=== PATIENT | female | born 1960 | race Caucasian/White ===

== ENCOUNTER 2016-11-18 11:14 | Inpatient (IN) ==
--- NOTE | 2016-11-17 21:35 | Discharge Summary ---
<Savita Workman - Last Filed: 11/17/16 21:32> Date of Encounter: 11/17/16 - Discharge Diagnosis (1) Arthritis of knee, left Priority: Primary Status: Acute (2) HTN (hypertension) Priority: Secondary Status: Chronic Qualifiers: Hypertension type: essential hypertension Qualified Code(s): I10 - Essential (primary) hypertension (3) FRANKY (obstructive sleep apnea) Priority: Secondary Status: Chronic (4) Obesity Priority: Secondary Status: Chronic Qualifiers: Obesity type: unspecified obesity type Obesity severity: morbid Qualified Code(s): E66.01 - Morbid (severe) obesity due to excess calories (5) DMII (diabetes mellitus, type 2) Priority: Secondary Status: Chronic Qualifiers: Diabetes mellitus complication status: with unspecified complications Diabetes mellitus petroleum terminal plant operator insulin use: unspecified detention insulin use status Qualified Code(s): E11.8 - Type 2 diabetes mellitus with unspecified complications (6) Chronic pain Priority: Secondary Status: Chronic Qualifiers: Chronic pain type: other chronic pain Qualified Code(s): G89.29 - Other chronic pain - Discharge Medications Home Medications: Atenolol [Tenormin] 50 mg PO DAILY 07/19/16 [History] Cholecalciferol (D-3) [Vitamin D] 2,000 unit PO DAILY 07/19/16 [History] Citalopram Hydrobromide [Celexa] 40 mg PO DAILY 07/19/16 [History] Etodolac [Lodine] 400 mg PO BID 07/19/16 [History] Gabapentin [Neurontin] 600 mg PO TID 07/19/16 [History] Simvastatin [Zocor] 20 mg PO HS 07/19/16 [History] amLODIPine [Norvasc] 5 mg PO DAILY 07/19/16 [History] hydroCHLOROthiazide [Hydrochlorothiazide] 25 mg PO DAILY 07/19/16 [History] metFORMIN [Glucophage] 500 mg PO BIDWM 07/19/16 [History] Aspirin Enteric Coated [Aspirin EC] 325 mg PO DAILY #21 tablet. 11/17/16 [Rx] OxyCODONE Immed Rel [Roxicodone 5 MG] 5 - 10 mg PO Q6HR PRN #40 tablet 11/17/16 [Rx] Allergies/Adverse Reactions: Allergies No Known Allergies Allergy (Unverified 10/19/15 17:15) Primary care physician: Joy Xiong CNP - Patient Status Disposition: Home, Self-Care Condition: Good - Discharge Instructions Follow Up With: Joy Xiong CNP [Primary Care Provider] - - Hospital Course Hospital course: Ms. Espitia is a 56 year old female - Time Spent with Patient Total time spent providing and/or coordinating discharge services: <Lico Farfan - Last Filed: 11/19/16 06:23> Date of Encounter: 11/19/16 Time of Encounter: 06:23 - Discharge Diagnosis (1) Arthritis of knee, left Priority: Primary Status: Acute (2) HTN (hypertension) Priority: Secondary Status: Chronic Qualifiers: Hypertension type: essential hypertension Qualified Code(s): I10 - Essential (primary) hypertension (3) FRANKY (obstructive sleep apnea) Priority: Secondary Status: Chronic (4) Obesity Priority: Secondary Status: Chronic Qualifiers: Obesity type: unspecified obesity type Obesity severity: morbid Qualified Code(s): E66.01 - Morbid (severe) obesity due to excess calories (5) DMII (diabetes mellitus, type 2) Priority: Secondary Status: Chronic Qualifiers: Diabetes mellitus complication status: with unspecified complications Diabetes mellitus detention insulin use: unspecified petroleum terminal plant operator insulin use status Qualified Code(s): E11.8 - Type 2 diabetes mellitus with unspecified complications (6) Chronic pain Priority: Secondary Status: Chronic Qualifiers: Chronic pain type: other chronic pain Qualified Code(s): G89.29 - Other chronic pain Primary care physician: Joy Xiong CNP - Patient Status Functional capacity at discharge: uses cane/walker Overall status at discharge: patient is progressing back to baseline - Hospital Course Hospital course: Ms. Espitia is a 56 year old female IThe patient had an uneventful postoperative course. They received antibiotics and physical therapy and were discharged in stable condition. There will follow -up in the office in 2 weeks. Aspirin prophylaxis - Time Spent with Patient Total time spent providing and/or coordinating discharge services:
--- NOTE | 2016-11-18 11:44 | History & Physical Report ---
Date of Encounter: 11/18/16 Time of Encounter: 11:44 24 Hour HP Update - Instructions Instructions: If the History and Physical is less than 30 days old and was completed prior to A.M. admission and or procedure and has NOT been updated on calendar day of procedure please complete this update prior to performing procedure. - Update Patient reports changes in Medical Condition: No Changes in examination, assessment, or condition: No Changes in Medication: No Preop tests/diagnostics Reviewed: Yes Surgery Remains Indicated: Yes Consent for Planned Operative Procedure(s) Verified: Yes - Pre-Operative Checklist Preoperative Checklist Indicated: No Prophylactic Antibiotic Ordered: Yes Is VTE Prophylaxis Indicated?: Yes
[2016-11-18] MEDS ORDERED: Ringers Solution, Lactated 1,000 ML IVC SCH ×2 (12:00→18:37)
[2016-11-18] MEDS ORDERED: Lidocaine -MPF 1% 2 ML VIAL ID ONE (12:00)
[2016-11-18] MEDS ORDERED: CeFAZolin Pre 2,000 MG/100 ML 2,000 MG/100 ML BAG IVPB ONE (12:00)
[2016-11-18] MEDS ORDERED: Gabapentin 300 MG CAPSULE PO ONE (12:45)
[2016-11-18] MEDS ORDERED: Famotidine 20 MG/2 ML VIAL IVP ONE (12:45)
--- NOTE | 2016-11-18 12:48 | Anesthesia Evaluation PreOp ---
Date of Encounter: 11/18/16 Time of Encounter: 12:45 - Past History Planned Operation: Left TKA Cardiac History: Hyperlipidemia Pulmonary History: FRANKY Dx (CPAP 9) INSURANCE OPERATIONS REP History: Denies Any Significant HX Other Medical History: Diabetes Type II (Accu check 164), Other (Morbid Obesity) Anesthesia History: No Prior Anesthetic Complications : No Alcohol Use: none Drug use: none Medications and Allergies Atenolol [Tenormin] 50 mg PO DAILY 07/19/16 [History] Cholecalciferol (D-3) [Vitamin D] 2,000 unit PO DAILY 07/19/16 [History] Citalopram Hydrobromide [Celexa] 40 mg PO DAILY 07/19/16 [History] Etodolac [Lodine] 400 mg PO BID 07/19/16 [History] Gabapentin [Neurontin] 600 mg PO TID 07/19/16 [History] Simvastatin [Zocor] 20 mg PO HS 07/19/16 [History] amLODIPine [Norvasc] 5 mg PO DAILY 07/19/16 [History] hydroCHLOROthiazide [Hydrochlorothiazide] 25 mg PO DAILY 07/19/16 [History] metFORMIN [Glucophage] 500 mg PO BIDWM 07/19/16 [History] Aspirin Enteric Coated [Aspirin EC] 325 mg PO DAILY #21 tablet. 11/17/16 [Rx] OxyCODONE Immed Rel [Roxicodone 5 MG] 5 - 10 mg PO Q6HR PRN #40 tablet 11/17/16 [Rx] Allergies No Known Allergies Allergy (Unverified 10/19/15 17:15) - Meds/Allergy Pre-op Review Medications Reviewed: Yes Allergies Reviewed: Yes Beta Blockers on Current Med List: No Anesthesia Results - Labs Laboratory Tests 10/28/16 10/28/16 10/28/16 14:02 14:02 14:02 Hgb 12.9 Hct 38.5 Plt Count 182 Sodium 138 Potassium 3.7 BUN 16 Creatinine 1.10 - Imaging EKG: report reviewed (SR) Additional studies: LVEF 60% from 2014 ECHO Anesthesia Exam O2 Sat Height 1.57 m Height 1.57 m Height 1.57 m Weight 101.605 kg Weight 101.605 kg Weight 101.605 kg O2 Sat by Pulse Oximetry 93 O2 Sat by Pulse Oximetry 93 Vital Signs Temp Pulse Resp BP Pulse Ox 98.7 F 67 18 119/72 93 11/18/16 11:40 11/18/16 11:40 11/18/16 11:40 11/18/16 11:40 11/18/16 11:40 Height: 5'2 Weight: 224 lbs NPO (# of Hours): MN Pain Scale: 0 - HEENT Pupil (Motor): Pupils equal, EOMI Mallampati: III Denture Type: Upper: Complete Oral Opening: Less than or equal to 3 - INSURANCE OPERATIONS REP LOC: Oriented INSURANCE OPERATIONS REP Motor: Normal RUE, Normal LUE, Normal RLE, Normal LLE, Normal Face INSURANCE OPERATIONS REP Sensory: Normal: RUE, LUE, RLE, LLE, Face - Cardiac Rhythm: Regular Murmur: None JVD: No Carotid Bruit: No - Pulmonary Breath Sounds: bilateral Clear Respiratory Effort: Symmetrical Anesthesia Assess/Plan ASA Score: 3 (MO DM) Modified [place] Scale for Level of Consciousness: Cooperative, oriented, and tranquil Anesthetic Plan: General, Regional Monitoring Plan: Standard Monitors Recovery Plan: PACU
[2016-11-18] MEDS ORDERED: Bupivacaine/Clonidine Syringe 1 EACH SYRINGE ONE (13:58)
[2016-11-18] MEDS ORDERED: *HR* HYDROmorphone (PF) 1 MG/ML SYRINGE IVP PRN ×2 (15:36→18:37)
[2016-11-18] MEDS ORDERED: *HR* Labetalol 100 MG/20 ML MDV IVP PRN (15:36)
[2016-11-18] MEDS ORDERED: Ondansetron 4 MG/2 ML VIAL IVP PRN ×2 (15:36→18:37)
--- NOTE | 2016-11-18 15:45 | Anesthesia Procedures ---
Date of Encounter: 11/18/16 Time of Encounter: 14:50 Procedures: Anesthesia - Nerve Block Procedure Date: 11/18/16 Time: 14:50 Allergies/Adv Reactions: nkda Pre-op Diagnosis: L knee arthritis Surgical Procedure: L TKA Checklist: Correct Patient Identifier, Correct procedure, History checked Correct side: Left Blood Thinner: No Monitor Applied: EKG, BP, Pulse Oximetry Supplemental Oxygen via Nasal Cannula (L/min): 3 Sedation: Versed (mg): 2 Sedation: Fentanyl (mcg): 100 Indication: Post Op Analgesia (requested by Dr. Farfan) Pre-op Neuro Deficits: No Block Type: Femoral, Other (iPACK) Catheter placed: No Sterile Technique: Yes Ultrasound used: Yes Anatomy identified: Yes Visual spread of Local: Yes Neuro Stimulation: Yes Nerve Stimulator Range: 0.2 - 0.4 mA Blood on Needle Aspiration: No Smooth Injection of Local: Yes Pain with Injection of Local: No Prep: Chlorhexadine Needle: 22 x 50 mm Stimuplex (femoral n. block), 21 x 100 mm Stimuplex (iPACK n. block) Local: 0.25% Bupivicaine w/Clonidine 20 mcg/cc (20mL for iPACK), Other (30mL 0.5 % bupivicaine for femoral n. block) Number of Attempts: 1 Complications: None/effective block Vitals: please see Gaviota DONAHUE's documentation
[2016-11-18] MEDS ORDERED: *HR* FentaNYL (PF) 100 MCG/2 ML VIAL ONE (15:46)
[2016-11-18] MEDS ORDERED: Lidocaine -MPF 2% 2 ML VIAL ONE (15:46)
[2016-11-18] MEDS ORDERED: *HR* Midazolam HCl 2 MG/2 ML VIAL ONE (15:46)
[2016-11-18] MEDS ORDERED: *HR* Propofol 200 MG/20 ML VIAL IVP ONE (15:46)
--- NOTE | 2016-11-18 15:47 | Orthopedic Operative Note ---
Date of procedure: 11/18/16 Pre-op diagnosis: Left knee arthritis Post-op diagnosis: same Procedure: Procedure: Left Total knee replacement Estimated blood loss: 200 cc Hardware: Metal and polyethylene replacement. Arthrex Femur: 4 Tibia: 3 PS insert: 11 Patella: 30 Exam Under anesthesia: Full flexion and extension no instability Procedural Notes: Grade 3 arthritic changes medial compartment patellofemoral joint. Operative procedure: The patient was brought to the operating room and placed on the operating room table. After general anesthesia was administered the operative knee was examined. Findings were noted in the exam under anesthesia. The operative extremity was prepped and draped in sterile surgical fashion. The patient received IV antibiotics prior to skin incision. A standard midline incision was made centered over the patella. The incision was made through the skin and subcutaneous tissue. A medial parapatellar tendon approach was performed. Care was taken to preserve tissue along the medial aspect of the patella. And to protect the patella tendon. The deep MCL was released off the medial tibia. The infra patella fat pad was excised. Knee was brought into flexion. Patient noted to have grade 3 arthritic changes medial compartment and patellofemoral joint. The entry hole was made for the intramedullary femoral guide. The guide was seated in 6 degrees of valgus. Anterior cut was made followed by the distal cut. The ACL the PCL the medial and the lateral menisci were excised. The tibia was subluxed forward. The entry hole was made for the intramedullary tibial guide. Guide was seated to resect 2 mm off the more abnormal side. The knee was brought into flexion the distal femur was sized to a 4. The femoral guide was seated, the anterior cut was made followed by the posterior condylar cut, followed by the chamfer cuts. The finishing guide was seated the box cut was made and the lug holes were drilled. The tibia was sized to a 3, the tibial tray was seated and prepared with the large drill followed by the fin cutter. Trial reduction revealed full extension no varus valgus instability with the appropriate 11 PS Tasia. The patella was everted and cut was made at the level of the insertion of the quadriceps and patella tendon. The patella was sized to a 30 the guide was seated and the lug holes are drilled. Trial reduction revealed excellent patella tracking. All trial components were removed all bony surfaces were irrigated. The tibia was cemented first followed by the femur. The PS Tasia was seated and the knee was brought into full extension. The patella was cemented and held in place with the patellar holding clamp. After the cement had hardened, the knee sat for 2 minutes with a Betadine saline solution. The knee was then irrigated out with 2 L of pulse irrigation. The extensor mechanism was closed with #2 FiberWire suture and #2 PDS suture. The subcutaneous tissue was then irrigated and closed deep with #1 PDS suture superficially with 0 PDS suture and skin was closed with skin nikolas. The patient was then placed in a sterile dressing and a postoperative brace extubated and transferred to recovery room in stable condition. Anesthesia: YASMINE Surgeon: Lico Farfan Artifacts Conservator: Lashawn Quiles Condition: stable Disposition: PACU
[2016-11-18] MEDS ORDERED: Ondansetron 4 MG/2 ML VIAL ONE (15:56)
[2016-11-18 17:01] LABS: Hematocrit 34.6 % (35.3-44.9); Hemoglobin 11.7 g/dL (11.5-15.4)
[2016-11-18] MEDS ORDERED: Ketorolac 30 MG/ML VIAL IVP ONE (17:09)
[2016-11-18] MEDS ORDERED: *HR* Enoxaparin 30 MG/0.3 ML SYRINGE SQ SCH (18:00)
--- NOTE | 2016-11-18 18:17 | Anesthesia Evaluation Post Op ---
Date of Encounter: 11/18/16 Time of Encounter: 17:55 - Vital Signs Vital Signs: Vital Signs/O2 Sat/Glucose, Most Current Temp Pulse Resp BP Pulse Ox 11/18/16 17:53 66 18 116/78 92 11/18/16 17:43 66 18 108/76 91 11/18/16 17:33 98.0 F 62 20 104/75 89 11/18/16 17:23 66 18 109/82 89 11/18/16 17:13 65 18 105/67 88 11/18/16 17:03 98.0 F 65 20 102/65 88 11/18/16 16:53 60 20 101/71 89 11/18/16 16:43 61 20 105/67 86 11/18/16 16:33 97.5 F L 67 22 96/65 92 - Lungs Lungs: Clear Ascult./Percussion - Airway Airway: Non-obstructed - Cardiovascular Regular Rate - Mental Status Mental Status: Alert & Oriented, Answers Appropriately - Pain Pain Scale: 0 - Nausea Vomiting Nausea Vomiting: Not Present - Hydration Hydration: Ice chips - Discharge PostOp Status: Transfer Patient to floor
[2016-11-18] MEDS ORDERED: D5% in Water 1,000 ML IVC PRN (18:37)
[2016-11-18] MEDS ORDERED: ceFAZolin 2,000 MG in D5% in Water 100 ML IVPB SCH (18:37)
[2016-11-18] MEDS ORDERED: Temazepam 15 MG CAPSULE PO PRN (18:37)
[2016-11-18] MEDS ORDERED: Sennosides 8.6 MG TABLET PO PRN (18:37)
[2016-11-18] MEDS ORDERED: MOM Conc 10 ML UD.LIQ PO PRN (18:37)
[2016-11-18] MEDS ORDERED: Naloxone 0.4 MG/ML INJ IVP PRN (18:37)
[2016-11-18] MEDS ORDERED: *HR* Dextrose 50 % in Water (Syg) 50 ML SYRINGE IVP PRN (18:37)
[2016-11-18] MEDS ORDERED: *HR* OxyCODONE Immed Rel 5 MG TABLET PO PRN (18:37)
[2016-11-18] MEDS ORDERED: Dextrose Gel 15 GM PO PRN ×2 (18:37)
[2016-11-18] MEDS: Gabapentin 300 MG CAPSULE PO SCH (20:06)
[2016-11-18] MEDS: *HR* Metformin 500 MG TABLET PO SCH (20:06)
[2016-11-18] MEDS: Insulin LISPRO 300 UNITS/3 ML VIAL SQ SCH ×2 (20:07→22:26)
[2016-11-19] MEDS: ceFAZolin 2,000 MG in D5% in Water 100 ML IVPB SCH ×3 (00:10→11:23)
[2016-11-19] MEDS: *HR* Enoxaparin 30 MG/0.3 ML SYRINGE SQ SCH ×2 (05:16→16:36)
[2016-11-19 05:40] LABS: Hematocrit 30.6 % (35.3-44.9); Hemoglobin 10.3 g/dL (11.5-15.4)
[2016-11-19 06:03] LABS: Calcium 8.4 mg/dL (8.6-10.8); Potassium 4.7 mEq/L (3.5-4.5)
--- NOTE | 2016-11-19 06:24 | Orthopedics Progress Note ---
Date of Encounter: 11/19/16 Time of Encounter: 06:24 - Assessment and Plan (1) Arthritis of knee, left Current Visit: Yes Status: Acute (2) HTN (hypertension) Current Visit: Yes Status: Chronic Qualifiers: Hypertension type: essential hypertension Qualified Code(s): I10 - Essential (primary) hypertension (3) FRANKY (obstructive sleep apnea) Current Visit: Yes Status: Chronic (4) Obesity Current Visit: Yes Status: Chronic Qualifiers: Obesity type: unspecified obesity type Obesity severity: morbid Qualified Code(s): E66.01 - Morbid (severe) obesity due to excess calories (5) DMII (diabetes mellitus, type 2) Current Visit: Yes Status: Chronic Qualifiers: Diabetes mellitus complication status: with unspecified complications Diabetes mellitus long term care phlebotomist insulin use: unspecified long term care phlebotomist insulin use status Qualified Code(s): E11.8 - Type 2 diabetes mellitus with unspecified complications (6) Chronic pain Current Visit: Yes Status: Chronic Qualifiers: Chronic pain type: other chronic pain Qualified Code(s): G89.29 - Other chronic pain Subjective Interval history: Patient was seen this morning doing well without complaints. Afebrile vital signs stable. Operative extremity: Neurovascularly intact Dressing clean dry and intact Calves nontender Assessment and plan: Continue with postoperative care Hematocrit 30 discharged today Objective Vital signs: Vital Signs Temp Pulse Resp BP Pulse Ox 11/19/16 03:22 97.3 F L 71 14 93/65 94 11/18/16 23:50 97.8 F 89 12 111/81 91 11/18/16 21:30 98.2 F 83 14 100/69 91 11/18/16 20:30 97.9 F 73 14 85/56 92 11/18/16 19:25 99.2 F 71 14 132/69 94 11/18/16 19:22 98.1 F 74 14 102/68 94 11/18/16 18:50 99.0 F 65 15 121/69 95 11/18/16 18:41 99.1 F 68 14 111/73 94 11/18/16 18:30 99.1 F 68 14 111/73 94 11/18/16 17:53 66 18 116/78 92 11/18/16 17:43 66 18 108/76 91 11/18/16 17:33 98.0 F 62 20 104/75 89 11/18/16 17:23 66 18 109/82 89 11/18/16 17:13 65 18 105/67 88 11/18/16 17:03 98.0 F 65 20 102/65 88 11/18/16 16:53 60 20 101/71 89 11/18/16 16:43 61 20 105/67 86 11/18/16 16:33 97.5 F L 67 22 96/65 92 11/18/16 14:05 67 106/67 94 11/18/16 12:12 98.7 F 67 18 119/72 93 11/18/16 11:40 98.7 F 67 18 119/72 93 Intake and Output 11/18/16 11/18/16 11/19/16 15:59 23:59 07:59 Intake Total 1100 / 1100 500 / 500 Output Total 200 / 200 0 / 0 0 / 0 Balance -200 / -200 1100 / 1100 500 / 500 Intake: IV Fluids 1000 / 1000 100 / 100 Lactated Ringers 1,000 ML 1000 / 1000 @ 25 mls/hr IVC .Q24H STEFFI Rx#:[id number] Ancef 2,000 MG In 100 / 100 Dextrose 5% 100 ML @ 200 mls/hr IVPB Q8H STEFFI Rx#: [id number] Oral 100 / 100 400 / 400 Output: Urine 0 / 0 0 / 0 Estimated Blood Loss 200 / 200 Other: # Voids 1 # Bowel Movements 0 Weight 101.605 kg 101.3 kg Blood Glucose* 164 212 Patient Weight 11/19/16 23:59 Weight 101.3 kg - Labs CBC & BMP: 11/19/16 05:11 11/19/16 05:11 Labs: Abnormal lab results Hgb 10.3 g/dL (11.5-15.4) L 11/19/16 05:11 Hct 30.6 % (35.3-44.9) L 11/19/16 05:11 Potassium 4.7 mEq/L (3.5-4.5) H 11/19/16 05:11 BUN 21 mg/dL (7-20) H 11/19/16 05:11 Creatinine 1.35 mg/dL (0.57-1.11) H 11/19/16 05:11 Est GFR ( Amer) 49 (> 60) L 11/19/16 05:11 Est GFR (Non-Af Amer) 41 (> 60) L 11/19/16 05:11 Glucose 165 mg/dL (70-99) H 11/19/16 05:11 POC Glucose 202 (58-89) H 11/18/16 16:36 Calcium 8.4 mg/dL (8.6-10.8) L 11/19/16 05:11 - VTE Documentation of Mechanical Device: Venous foot pump, device Consult Discharge Plan - Plan Referrals: Joy Xiong EXHIBIT TECHNICIAN [Primary Care Provider] -
[2016-11-19] MEDS: amLODIPine 5 MG TABLET PO SCH (07:42)
[2016-11-19] MEDS: hydroCHLOROthiazide 25 MG TABLET PO SCH (07:42)
[2016-11-19] MEDS: Gabapentin 300 MG CAPSULE PO SCH ×3 (07:52→20:53)
[2016-11-19] MEDS: *HR* Metformin 500 MG TABLET PO SCH ×2 (07:52→16:36)
[2016-11-19] MEDS: *HR* OxyCODONE Immed Rel 5 MG TABLET PO PRN ×3 (07:52→16:00)
[2016-11-19] MEDS: Cholecalciferol (D-3) 1,000 UNIT TABLET PO SCH (07:52)
[2016-11-19] MEDS: Insulin LISPRO 300 UNITS/3 ML VIAL SQ SCH ×4 (07:53→20:54)
[2016-11-20] MEDS: *HR* OxyCODONE Immed Rel 5 MG TABLET PO PRN ×3 (00:45→11:28)
[2016-11-20] MEDS: *HR* Enoxaparin 30 MG/0.3 ML SYRINGE SQ SCH ×2 (05:47→17:11)
[2016-11-20 06:17] LABS: Hematocrit 28.8 % (35.3-44.9); Hemoglobin 9.5 g/dL (11.5-15.4)
[2016-11-20 06:57] LABS: BUN/Creatinine Ratio 15 (6-26); Blood Urea Nitrogen 14 mg/dL (7-20); Calcium 8.5 mg/dL (8.6-10.8); Carbon Dioxide 27 mEq/L (19-29); Chloride 100 mEq/L (98-109); Glucose 195 mg/dL (70-99); Osmolality,Calculated 288 (280-300); Potassium 4.3 mEq/L (3.5-4.5); Sodium 136 mEq/L (136-145); eGFR For African Americans > 60 (> 60); eGFR For Non-African Americans > 60 (> 60)
--- NOTE | 2016-11-20 08:15 | Orthopedics Progress Note ---
Date of Encounter: 11/20/16 Time of Encounter: 08:15 - Assessment and Plan (1) Arthritis of knee, left Current Visit: Yes Status: Acute (2) HTN (hypertension) Current Visit: Yes Status: Chronic Qualifiers: Hypertension type: essential hypertension Qualified Code(s): I10 - Essential (primary) hypertension (3) FRANKY (obstructive sleep apnea) Current Visit: Yes Status: Chronic (4) Obesity Current Visit: Yes Status: Chronic Qualifiers: Obesity type: unspecified obesity type Obesity severity: morbid Qualified Code(s): E66.01 - Morbid (severe) obesity due to excess calories (5) DMII (diabetes mellitus, type 2) Current Visit: Yes Status: Chronic Qualifiers: Diabetes mellitus complication status: with unspecified complications Diabetes mellitus terminologist insulin use: unspecified terminologist insulin use status Qualified Code(s): E11.8 - Type 2 diabetes mellitus with unspecified complications (6) Chronic pain Current Visit: Yes Status: Chronic Qualifiers: Chronic pain type: other chronic pain Qualified Code(s): G89.29 - Other chronic pain Subjective Interval history: Patient was seen this morning doing well without complaints. Afebrile vital signs stable. Operative extremity: Neurovascularly intact Dressing clean dry and intact Calves nontender Assessment and plan: Continue with postoperative care hb and 9.5 discharged today Objective Vital signs: Vital Signs Temp Pulse Resp BP Pulse Ox 11/20/16 06:53 99.7 F H 82 18 131/79 94 11/20/16 00:30 99.1 F 89 20 108/68 92 11/19/16 19:32 97.7 F 82 16 108/69 94 11/19/16 15:49 99.6 F 76 14 115/77 94 11/19/16 12:59 98.9 F 73 16 98/64 94 11/19/16 11:02 98.1 F 66 16 97/67 96 Intake and Output 11/19/16 11/20/16 11/20/16 23:59 07:59 15:59 Intake Total 100 / 100 Output Total 350 / 350 Balance -250 / -250 Intake: Oral 100 / 100 Output: Urine 350 / 350 Other: Meal Dinner Percent of Meal Consumed 5% # Voids 1 Blood Glucose* 172 204 - Labs CBC & BMP: 11/20/16 05:56 11/20/16 05:56 Labs: Abnormal lab results Hgb 9.5 g/dL (11.5-15.4) L 11/20/16 05:56 Hct 28.8 % (35.3-44.9) L 11/20/16 05:56 Glucose 195 mg/dL (70-99) H 11/20/16 05:56 POC Glucose 178 (58-89) H 11/19/16 15:51 Calcium 8.5 mg/dL (8.6-10.8) L 11/20/16 05:56 - VTE Documentation of Mechanical Device: Venous foot pump, device Consult Discharge Plan - Plan Additional Instructions: Discharge Instructions: Total Knee Replacement Please call [facility] ([phone]), your Primary Care Physician, or report to the Emergency Room if you have any of the following symptoms: Nausea, vomiting, fever greater that 101.5, swelling, chest pain, shortness of breath, increased pain/redness/drainage/odor for your incision site, numbness/ tingling, or any other concerning symptoms. ACTIVITY:Weight-bearing as tolerated. You may progress off support (crutches or walker) as tolerated. MEDICATIONS: Upon discharge resume your home medications. Take all the medications as prescribed. Take a stool softener if taking narcotic pain medications. Stool softeners are only effective if you drink enough fluids. Drink 6-8 glass of water or fluids a day, unless this is not allowed for another health problem. Despite using stool softeners, if you haven't had a bowel movement in 3 days, please switch to a gentle laxative. Gentle laxatives are sold over the counter. You should have a bowel movement within 24 hours, if not call the office. You will be discharged from the hospital with a prescription for pain medication. You are encouraged to decrease the use of narcotic pain medication as tolerated. Should you require a refill, please call the office. [facility] prescribes narcotic pain medication for only 4-6 weeks after surgery. If you require pain medication beyond this time period, you may be referred to your Primary Care Physician or to the Pain Clinic for further evaluation. Plan ahead for refills on pain medication as many narcotics either need to be picked up at the office or mailed. It is best to call 48-72 hours in advance of needing a prescription refill so you don't run out of medication. To help control the post-operative pain, you may take NSAIDs (Aleve,Advil, Motrin, Ibuprofen, Naprosyn) or Tylenol as prescribed on the bottle in addition to the pain medication. ANTICOAGULATION (blood thinners): Continue your Aspirin, Lovenox or Coumadin as prescribed to help prevent a blood clot in the leg or in the lungs. As long as your incision remains dry and you tolerate the NSAIDs (Aleve, Advil, Motrin, ibuprofen, naprosyn), it is OK to use the NSAIDS while you are taking your anticoagulation medication. Should your incision start to drain, stop the NSAID and contact our office. Common symptoms of blood clot in the legs include: localized pain, swelling, calf tenderness, redness or discoloration of the skin. Blood clot in the lung symptoms include: shortness of breath, rapid pulse, sweating, and chest pain that worsens with deep breathing, coughing up blood, lightheadedness, feelings of anxiety. If you experience any of these symptoms notify your physician immediately, go to the emergency room, or if having trouble breathing, call 911. WOUND CARE: Leave the dressing on for 7 to 10days. You may change the dressing if it becomes saturated greater than 50%. Do not get the dressing wet at anytime. Wash your hands with antibacterial soap, rinse and dry prior to any wound care. If you have nikolas the visiting nurse or rehab facility can remove the stapes 10-14 days after surgery and place steri-strips across the wound. Leave the steri-strips in place until they fall off on their won. You may let water from the shower run on top of the steri-strips. If you do not have a visiting nurse or rehab facility, you will need to return to the office at 10-14 days for the nikolas to be removed. If you have itching or redness around the dressing call the office. FOLLOW-UP: Please follow up with your surgeon in the orthopedic clinic in 4 weeks from the day of surgery. If you have nikolas that need to be removed, you will need to come back to the office in 10-14 days from the day of surgery. Referrals: Lico Farfan MD [Partnered Physician] - Joy Xiong CNP [Primary Care Provider] -
[2016-11-20] MEDS: hydroCHLOROthiazide 25 MG TABLET PO SCH (09:44)
[2016-11-20] MEDS: Cholecalciferol (D-3) 1,000 UNIT TABLET PO SCH (09:44)
[2016-11-20] MEDS: amLODIPine 5 MG TABLET PO SCH (09:44)
[2016-11-20] MEDS: *HR* Metformin 500 MG TABLET PO SCH ×2 (09:44→16:26)
[2016-11-20] MEDS: Insulin LISPRO 300 UNITS/3 ML VIAL SQ SCH ×4 (09:44→20:22)
[2016-11-20] MEDS: Gabapentin 300 MG CAPSULE PO SCH ×3 (09:45→20:23)
[2016-11-21] MEDS: *HR* Enoxaparin 30 MG/0.3 ML SYRINGE SQ SCH (06:22)
[2016-11-21 07:26] VITALS: BP 102/60
[2016-11-21] MEDS: hydroCHLOROthiazide 25 MG TABLET PO SCH (07:37)
[2016-11-21] MEDS: amLODIPine 5 MG TABLET PO SCH (07:37)
[2016-11-21] MEDS: Gabapentin 300 MG CAPSULE PO SCH (07:44)
[2016-11-21] MEDS: Insulin LISPRO 300 UNITS/3 ML VIAL SQ SCH (07:44)
[2016-11-21] MEDS: Cholecalciferol (D-3) 1,000 UNIT TABLET PO SCH (07:44)
[2016-11-21] MEDS: *HR* Metformin 500 MG TABLET PO SCH (07:45)
--- NOTE | 2016-11-21 08:06 | Orthopedics Progress Note ---
Date of Encounter: 11/21/16 Time of Encounter: 08:06 - Assessment and Plan (1) Arthritis of knee, left Current Visit: Yes Status: Acute (2) HTN (hypertension) Current Visit: Yes Status: Chronic Qualifiers: Hypertension type: essential hypertension Qualified Code(s): I10 - Essential (primary) hypertension (3) FRANKY (obstructive sleep apnea) Current Visit: Yes Status: Chronic (4) Obesity Current Visit: Yes Status: Chronic Qualifiers: Obesity type: unspecified obesity type Obesity severity: morbid Qualified Code(s): E66.01 - Morbid (severe) obesity due to excess calories (5) DMII (diabetes mellitus, type 2) Current Visit: Yes Status: Chronic Qualifiers: Diabetes mellitus complication status: with unspecified complications Diabetes mellitus terminal system operator insulin use: unspecified terminal system operator insulin use status Qualified Code(s): E11.8 - Type 2 diabetes mellitus with unspecified complications (6) Chronic pain Current Visit: Yes Status: Chronic Qualifiers: Chronic pain type: other chronic pain Qualified Code(s): G89.29 - Other chronic pain Subjective Interval history: Patient was seen this morning doing well without complaints. Afebrile vital signs stable. Operative extremity: Neurovascularly intact Dressing clean dry and intact Calves nontender Assessment and plan: Continue with postoperative care Discharged today Objective Vital signs: Vital Signs Temp Pulse Resp BP Pulse Ox 11/21/16 07:23 98.1 F 69 18 102/60 98 11/20/16 23:08 98 F 69 18 108/72 94 11/20/16 19:05 98.1 F 71 17 115/69 92 11/20/16 16:17 97.8 F 71 18 120/70 96 11/20/16 10:00 98.1 F 76 16 147/68 95 Intake and Output 11/20/16 11/21/16 11/21/16 23:59 07:59 15:59 Other: Stool Consistency loose # Voids 1 # Bowel Movements 2 Weight 101.2 kg Blood Glucose* 180 173 Patient Weight 11/21/16 23:59 Weight 101.2 kg - Labs CBC & BMP: 11/20/16 05:56 11/20/16 05:56 Labs: Abnormal lab results Hgb 9.5 g/dL (11.5-15.4) L 11/20/16 05:56 Hct 28.8 % (35.3-44.9) L 11/20/16 05:56 Glucose 195 mg/dL (70-99) H 11/20/16 05:56 POC Glucose 180 (58-89) H 11/20/16 20:21 Calcium 8.5 mg/dL (8.6-10.8) L 11/20/16 05:56 - VTE Documentation of Mechanical Device: Venous foot pump, device Consult Discharge Plan - Plan Additional Instructions: Discharge Instructions: Total Knee Replacement Please call [facility] ([phone]), your Primary Care Physician, or report to the Emergency Room if you have any of the following symptoms: Nausea, vomiting, fever greater that 101.5, swelling, chest pain, shortness of breath, increased pain/redness/drainage/odor for your incision site, numbness/ tingling, or any other concerning symptoms. ACTIVITY:Weight-bearing as tolerated. You may progress off support (crutches or walker) as tolerated. MEDICATIONS: Upon discharge resume your home medications. Take all the medications as prescribed. Take a stool softener if taking narcotic pain medications. Stool softeners are only effective if you drink enough fluids. Drink 6-8 glass of water or fluids a day, unless this is not allowed for another health problem. Despite using stool softeners, if you haven't had a bowel movement in 3 days, please switch to a gentle laxative. Gentle laxatives are sold over the counter. You should have a bowel movement within 24 hours, if not call the office. You will be discharged from the hospital with a prescription for pain medication. You are encouraged to decrease the use of narcotic pain medication as tolerated. Should you require a refill, please call the office. [facility] prescribes narcotic pain medication for only 4-6 weeks after surgery. If you require pain medication beyond this time period, you may be referred to your Primary Care Physician or to the Pain Clinic for further evaluation. Plan ahead for refills on pain medication as many narcotics either need to be picked up at the office or mailed. It is best to call 48-72 hours in advance of needing a prescription refill so you don't run out of medication. To help control the post-operative pain, you may take NSAIDs (Aleve,Advil, Motrin, Ibuprofen, Naprosyn) or Tylenol as prescribed on the bottle in addition to the pain medication. ANTICOAGULATION (blood thinners): Continue your Aspirin, Lovenox or Coumadin as prescribed to help prevent a blood clot in the leg or in the lungs. As long as your incision remains dry and you tolerate the NSAIDs (Aleve, Advil, Motrin, ibuprofen, naprosyn), it is OK to use the NSAIDS while you are taking your anticoagulation medication. Should your incision start to drain, stop the NSAID and contact our office. Common symptoms of blood clot in the legs include: localized pain, swelling, calf tenderness, redness or discoloration of the skin. Blood clot in the lung symptoms include: shortness of breath, rapid pulse, sweating, and chest pain that worsens with deep breathing, coughing up blood, lightheadedness, feelings of anxiety. If you experience any of these symptoms notify your physician immediately, go to the emergency room, or if having trouble breathing, call 911. WOUND CARE: Leave the dressing on for 7 to 10days. You may change the dressing if it becomes saturated greater than 50%. Do not get the dressing wet at anytime. Wash your hands with antibacterial soap, rinse and dry prior to any wound care. If you have nikolas the visiting nurse or rehab facility can remove the stapes 10-14 days after surgery and place steri-strips across the wound. Leave the steri-strips in place until they fall off on their won. You may let water from the shower run on top of the steri-strips. If you do not have a visiting nurse or rehab facility, you will need to return to the office at 10-14 days for the nikolas to be removed. If you have itching or redness around the dressing call the office. FOLLOW-UP: Please follow up with your surgeon in the orthopedic clinic in 4 weeks from the day of surgery. If you have nikolas that need to be removed, you will need to come back to the office in 10-14 days from the day of surgery. Referrals: Lico Farfan MD [Partnered Physician] - Joy Xiong CNP [Primary Care Provider] -
[2016-11-21] MEDS: *HR* OxyCODONE Immed Rel 5 MG TABLET PO PRN (10:03)
== END 2016-11-21 11:27 | disposition home or self-care (01) | DRG 470 ==
LOC: SAMDAY 11:14 → 3NENU 18:39
PROVIDERS: ADMIT Orthopaedic Surgery; ATTEND Orthopaedic Surgery